=== PATIENT | male | born 1960 | race Caucasian/White ===

== ENCOUNTER 2023-10-28 15:47 | Inpatient (IN) | payer MEDICAID, SELFPAY ==
[2023-10-28 15:57] VITALS: BP 146/106; PULSE 91; RESP 18; TEMP 36.8; O2SAT 97; BMI 27.9
--- NOTE | 2023-10-28 17:06 | ED_ITS ---
Documented by User: Francisco Benton DO 10/28/23 18:26 HPI - General Adult 2 General: Chief complaint: General Medical Stated complaint: hernia trouble Time Seen by Provider: 10/28/23 17:00 Source: patient Mode of arrival: ambulatory History of Present Illness: 63-year-old male presents emergency room complaining of a bulge in the left groin he is concerned about a hernia. He has a very large swollen area in the left inguinal region. Began earlier today it is much larger than usual he is not able to reduce it he has not had any vomiting or diarrhea. No fever sweats or chills. He has had hernia repair in the past. Onset (ago): day(s) Location: genitals Relieving factors: none Exacerbating factors: none Associated symptoms: Reports decreased appetite and nausea; Deny chest pain, confusion, cough, diaphoresis, dyspnea, fevers/chills, headache(s), malaise, rash, palpitations, seizures, short of breath, syncope, vomiting or weakness Review of Systems 2 Const: Denies: fever(s), chills, malaise or diaphoresis Card: Denies: chest pain, palpitations or syncope Resp: Denies: dyspnea GI: Reports: nausea; Denies: abdominal pain or vomiting : Denies: dysuria, urinary frequency or urinary urgency Musc: Denies: neck pain or back pain Skin/Breast: Denies: rash Neuro: Denies: headache(s) or confusion Physical Exam 2 Const: GENERAL APPEARANCE: cooperative and comfortable O RIENTATION/CONSCIOUSNESS: Yes awake, Yes oriented to person, Yes oriented to place and Yes oriented to time HENMT: COMMON NORMALS: normocephalic, atraumatic and hearing grossly normal bilaterally HEAD & SCALP: normocephalic and atraumatic Resp: COMMON NORMALS: normal respiratory effort, No retractions, No use of accessory muscles and clear to auscultation bilaterally AUSCULTATION: clear to auscultation bilaterally Cardio: COMMON NORMALS: regular rate, regular rhythm and No murmurs present (Cardio) RATE: regular rate RHYTHM: regular rhythm GI: COMMON NORMALS: Soft to palpation and No hepatosplenomegaly present A USCULTATION: Yes normoactive bowel sounds PALPATION: Yes Soft to palpation, No Tenderness to palpation present (GI), No Guarding due to palpation present (GI) and Yes No hepatosplenomegaly present : OTHER: Large irreducible left inguinal hernia. It is actually tender large enough it is tympanic to percussion. Exquisitely tender with attempts to reduce. Extremity: COMMON NORMALS: normal to inspection, capillary refill normal, no clubbing, cyanosis or edema, no calf tenderness and no pedal edema Neuro: SENSORIUM/ORIENTATION: Yes oriented to person, Yes oriented to place and Yes oriented to time Skin: COMMON NORMALS: no rashes or lesions noted GENERAL SKIN EXAM: no rashes or lesions noted Course 2 Vital Signs: Vital signs: Vital Signs Temperature 99.4 F 11/03/23 16:30 Pulse Rate 92 11/03/23 16:30 Respiratory Rate 16 11/03/23 16:30 Blood Pressure 150/92 11/03/23 16:30 Pulse Oximetry 95 11/03/23 16:30 Oxygen Delivery Me thod Room Air 11/03/23 16:27 Oxygen Flow Rate 8 11/01/23 15:18 MDM - General Adult Medical Decision Making Incarcerated inguinal hernia on the left with bowel obstruction unable to reduce. It has been out for a while and increasing in swelling is very tympanic to exam even. Will admit to Dr. Pyle. Orders written I discussed Dr. Pyle he is where the patient. Medical Records I reviewed the patient's medical records. Lab Data I reviewed the patient's lab results. 11/03/23 04:29 11/03/23 04:29 Radiology Impressions Abdomen/Pelvis CT 10/28/23 17:47 IMPRESSION: 1. Small bowel obstruction with change in caliber at the neck of a large left-sided inguinal hernia containing small bowel, sigmoid colon and edematous mesenteric fat. Surgical evaluation is recommended. Laboratory Results Urine Color Dark yellow (Yellow) 10/28/23 17:45 Urine Appearance Clear (CLEAR) 10/28/23 17:45 Urine pH 5 (5-7) 10/28/23 17:45 Ur Specific Ransom 1.030 (1.005-1.030) 10/28/23 17:45 Urine Protein Trace (Negative) 10/28/23 17:45 Urine Glucose (UA) Norm (Normal) 10/28/23 17:45 Urine Ketones 2+ (Negative) H 10/28/23 17:45 Urine Blood 2+ (Negative) H 10/28/23 17:45 Urine Nitrate Negative (Negative) 10/28/23 17:45 Urine Bilirubin 1+ (Negative) H 10/28/23 17:45 Urine Urobilinogen Norm mg/dL (Negative) 10/28/23 17:45 Ur Leukocyte Esterase Trace (Negative) H 10/28/23 17:45 Urine RBC 5-10 /hpf (0-2) H 10/28/23 17:45 Urine WBC 0-4 /hpf (0-5) H 10/28/23 17:45 Ur Squamous Epith Cells 0-4 /hpf (0-5) H 10/28/23 17:45 Amorphous Sediment Not Reportable 10/28/23 17:45 Urine Bacteria None /hpf (NONE) 10/28/23 17:45 Urine Mucus 2+ /hpf 10/28/23 17:45 All radiology interpretation(s) finalized by discharge Discharge Plan Discharge Patient Disposition: Admitted As Inpatient Admit Provider: Lang Pyle Clinical Impression: Incarcerated hernia, Bowel obstruction Condition: Stable Discharge Diet: Advance as tolerated Discharge Activity: Limit activity as instructed Coding Level of Care Code ED Retail Business Development Manager for Chg Fwd Documented by User: Jordi Kidd MD 11/04/23 22:07 HPI - General Adult 2 General: Chief complaint: General Medical Stated complaint: hernia trouble Time Seen by Provider: 10/28/23 17:00 Course 2 Vital Signs: Vital signs: Vital Signs Temperature 99.4 F 11/03/23 16:30 Pulse Rate 92 11/03/23 16:30 Respiratory Rate 16 11/03/23 16:30 Blood Pressure 150/92 11/03/23 16:30 Pulse Oximetry 95 11/03/23 16:30 Oxygen Delivery Me thod Room Air 11/03/23 16:27 Oxygen Flow Rate 8 11/01/23 15:18 MDM - General Adult Differential Diagnosis Bowel obstruction, incarcerated hernia, Lab Data 11/03/23 04:29 11/03/23 04:29 Radiology Impressions Abdomen/Pelvis CT 10/28/23 17:47 IMPRESSION: 1. Small bowel obstruction with change in caliber at the neck of a large left-sided inguinal hernia containing small bowel, sigmoid colon and edematous mesenteric fat. Surgical evaluation is recommended. Laboratory Results Urine Color Dark yellow (Yellow) 10/28/23 17:45 Urine Appearance Clear (CLEAR) 10/28/23 17:45 Urine pH 5 (5-7) 10/28/23 17:45 Ur Specific Ransom 1.030 (1.005-1.030) 10/28/23 17:45 Urine Protein Trace (Negative) 10/28/23 17:45 Urine Glucose (UA) Norm (Normal) 10/28/23 17:45 Urine Ketones 2+ (Negative) H 10/28/23 17:45 Urine Blood 2+ (Negative) H 10/28/23 17:45 Urine Nitrate Negative (Negative) 10/28/23 17:45 Urine Bilirubin 1+ (Negative) H 10/28/23 17:45 Urine Urobilinogen Norm mg/dL (Negative) 10/28/23 17:45 Ur Leukocyte Esterase Trace (Negative) H 10/28/23 17:45 Urine RBC 5-10 /hpf (0-2) H 10/28/23 17:45 Urine WBC 0-4 /hpf (0-5) H 10/28/23 17:45 Ur Squamous Epith Cells 0-4 /hpf (0-5) H 10/28/23 17:45 Amorphous Sediment Not Reportable 10/28/23 17:45 Urine Bacteria None /hpf (NONE) 10/28/23 17:45 Urine Mucus 2+ /hpf 10/28/23 17:45 Discharge Plan Discharge Patient Disposition: Admitted As Inpatient Admit Provider: Lang Pyle Clinical Impression: Incarcerated hernia, Bowel obstruction Condition: Stable Discharge Diet: Advance as tolerated Discharge Activity: Limit activity as instructed Coding Level of Care Code ED Retail Business Development Manager for Rody Fisher
[2023-10-28 17:45] VITALS: BP 136/99; PULSE 87; O2SAT 96
--- NOTE | 2023-10-28 17:47 | CTR_ITS ---
PROCEDURE INFORMATION: Exam: CT Abdomen And Pelvis Without Contrast Exam date and time: 10/28/2023 5:54 PM Age: 63 years old Clinical indication: Abdominal pain; Localized; Left lower quadrant (llq) TECHNIQUE: Imaging protocol: Computed tomography of the abdomen and pelvis without contrast. Radiation optimization: All CT scans at this facility use at least one of these dose optimization techniques: automated exposure control; mA and/or kV adjustment per patient size (includes targeted exams where dose is matched to clinical indication); or iterative reconstruction. COMPARISON: No relevant prior studies available. RADIATION DOSE METRICS: Total DLP (mGy-cm): 1013.34 FINDINGS: Lungs: Subsegmental bibasilar atelectasis. The visualized lung bases are otherwise clear. Diaphragm: No evidence of diaphragmatic defect. Liver: No evidence of focal hepatic lesion within limitation of a noncontrast exam. Gallbladder and bile ducts: Gallbladder is unremarkable. No evidence of intra-hepatic or extra-hepatic biliary dilatation. Pancreas: Grossly unremarkable. Spleen: Multiple splenic calcifications compatible with sequela of a remote granulomatous process. Otherwise grossly unremarkable. Adrenal glands: Grossly unremarkable. Kidneys and ureters: There are simple appearing left-sided renal cysts for which dedicated imaging follow-up is not required. Otherwise no evidence of renal parenchymal abnormality. No hydronephrosis or ureteral stone. Stomach and bowel: There is a large left-sided inguinal hernia measuring approximately 15 cm in length by 9.5 cm transverse containing a segment of nonobstructed sigmoid colon as well as a segment of dilated small bowel measuring up to 3.2 cm. There is mild edema and a small amount of fluid within the hernia sac suggestive of venous congestion. There are loops of mildly dilated intra-abdominal small bowel proximally measuring up to 2.8 cm with air-fluid levels with change in caliber of the neck of the hernia suggestive of at least partial small bowel obstruction. Additional small fat containing right-sided inguinal hernia. Appendix: Normal appendix. Intraperitoneal space: No evidence of free air or fluid collection. Vasculature: No evidence of aneurysmal dilitation of abdominal aorta. Lymph nodes: No evidence of adenopathy. Urinary bladder: Grossly unremarkable. Reproductive: Grossly unremarkable. Bones/joints: No evidence of acute fracture or aggresive osseous lesion. Moderate multilevel spondylosis of the lumbar spine with facet arthrosis and osteophytosis. Soft tissues: No evidence of fluid collection or hematoma in the superficial soft tissues. CT/CT abdomen pelvis wo con [id number] IMPRESSION: 1. Small bowel obstruction with change in caliber at the neck of a large left-sided inguinal hernia containing small bowel, sigmoid colon and edematous mesenteric fat. Surgical evaluation is recommended.
[2023-10-28 18:05] LABS: Bilirubin Urine 1+ (Negative); Blood Urine 2+ (Negative); Glucose Urine UA Norm (Normal); Ketones Urine 2+ (Negative); Nitrate Urine Negative (Negative); Protein Urine Trace (Negative); Urine Appearance Clear (CLEAR); Urine Color Dark Yellow (Yellow); Urobilinogen Urine Norm (Negative); pH Urine 5 (5-7)
[2023-10-28 18:06] LABS: Add Urine Microscopic? YES; Leukocyte Esterase Urine Trace (Negative)
[2023-10-28 18:07] LABS: Add Urine Culture? No; Mucus Urine 2+ /hpf; Squamous Epithelial Cell Urine 0-4 /hpf (0-5); WBC Urine 0-4 /hpf (0-5)
--- NOTE | 2023-10-28 19:20 | P.HP_ITS ---
Providers/Chief Complaint 2 Admitting Physician: Lang Pyle DO Primary Care Provider: RYAN Arellano Chief Complaint: hernia trouble History of Present Illness Agustín Viera is a 63 year old male who presented to the hospital with 1 day history of swelling and pain in his left groin. He has known bilateral recurrent inguinal hernias. The left side has been larger than the right but got much larger today and is quite painful. Movement and palpation make the pain worse. Nothing makes pain better. The pain radiates down into his scrotum. He is unsure if he is passing any flatus. His last bowel movement was yesterday. He denies any nausea or emesis. CT shows bilateral inguinal hernias with a small bowel obstruction from the left inguinal hernia containing small bowel and sigmoid colon along with omentum and mesentery Review of Systems 2 General: Reports: 10 or more systems reviewed and unremarkable except in HPI and below Medications/Allergies Home Medications Medication Instructions Recorded Confirmed Last Taken Type acetaminophen 500 mg tablet 1,000 mg PO Q6H PRN headache 10/28/23 10/28/23 10/27/23 10:00 History calcium carbonate (Tums) 200 mg PO BID PRN Heartburn 10/28/23 10/28/23 10/25/23 12:00 History Allergies Allergy/AdvReac Type Severity Reaction Status Date / Time No Known Allergies Allergy Verified 10/28/23 16:00 Vitals/I&O/Wt Last Vital Signs Temp 98.1 F 10/29/23 08:00 Pulse 53 L 10/29/23 08:00 Resp 18 10/29/23 08:00 BP 148/65 10/29/23 08:00 Pulse Ox 94 10/29/23 08:00 O2 Del Method Room Air 10/29/23 04:00 10/28/23 10/29/23 10/29/23 22:59 06:59 14:59 Intake Total 480 / 480 997.5 / 1477.5 1050 / 1050 Output Total 650 / 650 Balance 480 / 480 347.5 / 827.5 1050 / 1050 Weight last 48 hrs Weight 212 lb 5 oz Weight 208 lb 11.2 oz Weight 212 lb Physical Exam 2 Narrative: General : Patient is well developed , no acute distress, oriented x3 Head : Normal cephalic, a-traumatic. Ears : Pinnae and external canal are normal. Hearing is normal. Eyes : PERRLA, Sclera and injection are normal. No conjunctival discharge. Nose : Mucous membranes are without erythema. Throat : buccal mucosa is normal, gums are without significant recession or hypertrophy. Lungs : Equal chest rise bilaterally, no use of accessory muscles, trachea is midline. Cor : Rate and rhythm are normal. Abdomen : Soft, ND, there are recurrent bilateral inguinal hernias, the left one is incarcerated but I was able to reduce the acute portion, no overlying erythema no g/r/m Extremities : No edema, no cyanosis or clubbing, dorsalis pedis pulses are present bilaterally, non-tender to palpation of calves. Upper extremities are normal bilaterally. Back : non-tender to palpation, no CVA tenderness. Neuro : CN II - XII intact, Upper and lower extremities have equal and full strength Data 10/28/23 20:55 10/28/23 20:55 A&P Assessment and plan (1) Incarcerated left inguinal hernia: (2) Recurrent right inguinal hernia: (3) Small bowel obstruction: Plan His hernia was quite large but I was able to reduce the acute portion and relieve his symptoms. A covering surgeon is taking over tomorrow and for the weekend. My plan is to give him a clear liquid diet and a bowel prep on Wednesday, along with antibiotics to prevent bacterial translocation to the mesh and do a laparoscopic repair of bilateral inguinal hernias on Wednesday. Covering surgeon may choose to repair the hernias tomorrow or over the weekend, which is fine with me. He scored positively on nursing suicide questionnaire and therefore we will consult psychiatry Attestations 2 Medical Necessity Statement*: Patient requires multiple nights in the hospital for diet management, antibiotics, bowel prep and bilateral inguinal hernia repairs along with treatment of small bowel obstruction Coding Level of Care Code 15999 Diagnoses Incarcerated left inguinal hernia K40.30 Recurrent right inguinal hernia K40.91 Small bowel obstruction K56.609
[2023-10-28 20:19] VITALS: RESP 18; O2SAT 96
[2023-10-28] MEDS: morphine 4 mg/mL SDV 1 mL IVP (20:19)
[2023-10-28] MEDS: sodium chloride 0.9% 1,000 ML 150 ML IV (20:22)
[2023-10-28 21:27] VITALS: BP 131/87; PULSE 90; RESP 19; TEMP 36.9; O2SAT 95
[2023-10-28 21:31] LABS: Basophils % 0.3 %; Eosinophils % 0.1 %; Hematocrit 41.3 % (37-53); Lymphocytes # 1.1 10^3/uL (0.8-4.8); Lymphocytes % 10.5 %; Mean Corpuscular HGB Conc 35.8 g/dL (30-55); Mean Corpuscular Hemoglobin 35.3 pg (27-33); Mean Corpuscular Volume 98.6 fl (82-101); Mean Platelet Volume 11.3 fL (7.4-10.4); Monocytes # 0.6 10^3/uL (0.2-0.9); Monocytes % 5.9 %; Neutrophils # 8.88 10^3/uL (1.8-7.7); Neutrophils % 82.8 %; Nucleated Red Blood Cells % 0 %; Platelet Count 186 10^3/cmm (157-399); Red Blood Count 4.19 10^6/uL (3.85-5.65); Red Cell Distribution Width 11.9 % (12.1-15.1); White Blood Count 10.72 10^3/uL (3.29-11.43)
[2023-10-28 21:44] LABS: INR 1.12 (0.8-1.2); Partial Thromboplastin Time 27.9 SECONDS (23.9-36.7)
[2023-10-28 21:53] LABS: Alanine Aminotransferase 20 U/L (0-41); Albumin Level 4.4 g/dL (3.5-5.2); Alkaline Phosphatase 57 U/L (40-130); Aspartate Amino Transferase 20 U/L (0-40); Blood Urea Nitrogen 23 mg/dL (8-23); Calcium 9.4 mg/dL (8.5-10.5); Carbon Dioxide 23 mmol/L (22-29); Chloride 108 mmol/L (98-107); Creatinine Clr Calc Pharmacy 105.3392; Globulin 2.7 g/dL (1.3-4.6); Glomerular Filtration Rate 85.8 mL/min (90-130); Glucose 104 mg/dL (65-115); Osmolality Calculated 296 mOsm/kg (285-295); Sodium 141 mmol/L (136-145); Total Bilirubin 0.7 mg/dL (0.15-1.2); Total Protein 7.1 g/dL (6.6-8.7)
[2023-10-28 21:54] LABS: Lactic Sepsis W/Reflex 1.2 mmol/L (0.5-2.2)
[2023-10-28] MEDS: piperacillin-tazobactam 3.375 GM in sodium chloride 0.9% (plus) 50 ML IV (22:15)
[2023-10-29] VITALS: BP 152/88; PULSE 88; RESP 19; TEMP 36.7; O2SAT 98
[2023-10-29] MEDS: sodium chloride 0.9% 1,000 ML 150 ML IV ×3 (02:41→19:04)
[2023-10-29 04:00] VITALS: BP 154/92; PULSE 66; RESP 19; TEMP 36.6; O2SAT 96
[2023-10-29] MEDS: piperacillin-tazobactam 3.375 GM in sodium chloride 0.9% (plus) 50 ML IV ×3 (05:21→21:12)
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
[2023-10-29 08:00] VITALS: BP 148/65; PULSE 53; RESP 18; TEMP 36.7; O2SAT 94
--- NOTE | 2023-10-29 09:24 | PC.CHAP ---
Pastoral Care Encounter/Spiritual Assessment Type of Contact [] Declined front desk worker visit [] Patient/Family/Request visit [] Outpatient visit [] Follow-up visit [] Physician referral [] Code/Alert [x] Routine visit [] Staff referral [] Actively dying [] Patient sleeping [] Family support [] [] Out of room [] Palliative care [] [] Receiving care in room [] Pre-surgical visit [] Trauma [] Long length of stay [] ICU visit [] Other: Relational/Emotional Strength [x] Patient feels connected with others/family/visitors/staff [] Distress [] Loneliness/isolation [] Abandonment Spirituality of Patient [x] Person of Ligia [] Attends Anabaptism of their Ligia [x] Believes in Prayer [] Reads Bible or Cheondoism materials [] There are Spiritual issues to be addressed Manager Functional Interventions [x] Prayer [x] Active listening [] Non-anxious presence [x] Spiritual/emotional support [] Crisis/trauma care [] Spiritual counseling [] Bereavement support [] Provided bereavement packet [] Provided Bible/devotional materials [] Provided toy/stuffed animal, coloring book to patient or family member [] Provided Communion [] Anointing/[place] [] Salvation [x] Completed spiritual assessment [] Other: Impact on Illness or Injury [] Angry [] Fearful [] Anxious [] Often cries [] Exhaustion [] Unable to work [] Unable to attend jainism [] Unable to walk/stand [] Unable to read [] Unable to drive [] Unable to eat/drink [] Unable to sleep [] Unable to be with family [] Patient intubated [] Other: Summary Time spent with patient 10 min
--- NOTE | 2023-10-29 09:33 | P.PN_ITS ---
Subjective 2 Subjective: Patient seen and examined. He is now having bowel movements and passing flatus. Denies any nausea or vomiting. Pain has resolved Vitals/I&O/Wt Last Vital Signs Temp 98.1 F 10/29/23 08:00 Pulse 53 L 10/29/23 08:00 Resp 18 10/29/23 08:00 BP 148/65 10/29/23 08:00 Pulse Ox 94 10/29/23 08:00 O2 Del Method Room Air 10/29/23 04:00 10/28/23 10/29/23 10/29/23 22:59 06:59 14:59 Intake Total 480 / 480 997.5 / 1477.5 1050 / 1050 Output Total 650 / 650 Balance 480 / 480 347.5 / 827.5 1050 / 1050 Weight last 48 hrs Weight 212 lb 5 oz Weight 208 lb 11.2 oz Weight 212 lb Physical Exam 2 Narrative: General: No acute distress, awake alert and oriented x 3 Abdomen: Soft, nontender, nondistended, there are bilateral inguinal hernias which are recurrent and the left one is incarcerated but there is no longer an obstruction Data 10/28/23 20:55 10/28/23 20:55 A&P Assessment and plan (1) Incarcerated left inguinal hernia: (2) Recurrent right inguinal hernia: (3) Small bowel obstruction: Plan His hernia was quite large but I was able to reduce the acute portion and relieve his symptoms. A covering surgeon is taking over today and for the weekend. My plan is to give him a clear liquid diet and a bowel prep on Wednesday, along with antibiotics to prevent bacterial translocation to the mesh and do a laparoscopic repair of bilateral inguinal hernias on Wednesday. Covering surgeon may choose to repair the hernias tomorrow or over the weekend, which is fine with me. He scored positively on nursing suicide questionnaire and therefore we will consult psychiatry Attestations 2 Medical Necessity Statement*: Patient requires multiple nights in the hospital for diet management, antibiotics, bowel prep and bilateral inguinal hernia repairs along with treatment of small bowel obstruction Coding Level of Care Code 89920 Diagnoses Incarcerated left inguinal hernia K40.30 Recurrent right inguinal hernia K40.91 Small bowel obstruction K56.609
[2023-10-29 12:00] VITALS: BP 138/79; PULSE 72; RESP 16; TEMP 36.5; O2SAT 96
[2023-10-29 16:00] VITALS: BP 136/83; PULSE 66; RESP 16; TEMP 36.6; O2SAT 95
[2023-10-29] MEDS: acetaminophen 325 mg Tablet 650 MG PO (16:42)
[2023-10-29 20:00] VITALS: BP 134/87; PULSE 69; RESP 16; TEMP 36.8; O2SAT 95
[2023-10-30] VITALS (7 sets, daily range): BP systolic 119–165; BP diastolic 76–97; PULSE 62–86; RESP 16–18; TEMP 36.4–37.1; O2SAT 94–97; BMI 28.5
[2023-10-30] MEDS: sodium chloride 0.9% 1,000 ML 150 ML IV ×4 (01:25→21:20)
[2023-10-30 03:58] LABS: Basophils # 0.1 10^3/uL (0.0-0.1); Basophils % 0.8 %; Eosinophils # 0.1 10^3/uL (0.0-0.8); Eosinophils % 2.2 %; Hematocrit 39.5 % (37-53); Lymphocytes % 30.9 %; Mean Corpuscular HGB Conc 35.2 g/dL (30-55); Mean Corpuscular Hemoglobin 35.6 pg (27-33); Mean Corpuscular Volume 101.3 fl (82-101); Mean Platelet Volume 11.3 fL (7.4-10.4); Monocytes # 0.7 10^3/uL (0.2-0.9); Monocytes % 11.1 %; Neutrophils # 3.56 10^3/uL (1.8-7.7); Neutrophils % 54.7 %; Nucleated Red Blood Cells % 0 %; Platelet Count 169 10^3/cmm (157-399); Red Cell Distribution Width 11.9 % (12.1-15.1)
[2023-10-30 04:19] LABS: Anion Gap 11.6 (5-19); Blood Urea Nitrogen 9 mg/dL (8-23); Calcium 8.7 mg/dL (8.5-10.5); Carbon Dioxide 23 mmol/L (22-29); Chloride 112 mmol/L (98-107); Creatinine Clr Calc Pharmacy 118.5839; Glomerular Filtration Rate 98.3 mL/min (90-130); Glucose 91 mg/dL (65-115); Osmolality Calculated 294 mOsm/kg (285-295); Potassium 3.6 mmol/L (3.5-5.1); Sodium 143 mmol/L (136-145)
[2023-10-30] MEDS: piperacillin-tazobactam 3.375 GM in sodium chloride 0.9% (plus) 50 ML IV ×3 (05:35→20:45)
--- NOTE | 2023-10-30 08:49 | P.PN_ITS ---
Subjective 2 Subjective: No acute events overnight. Pain resolved, returned to baseline L inguinal discomfort. Patient looking forward to hernia repair Wednesday. No longer obstructed. Vitals/I&O/Wt Last Vital Signs Temp 98.7 F 10/30/23 03:39 Pulse 86 10/30/23 03:39 Resp 18 10/30/23 03:39 BP 132/76 10/30/23 03:39 Pulse Ox 94 10/30/23 03:39 O2 Del Method Room Air 10/30/23 03:39 10/29/23 10/30/23 10/30/23 22:59 06:59 14:59 Intake Total 1750 / 4000 1002.5 / 5002.5 1000 / 1000 Output Total 72 / 5 350 / 2375 Balance 1024 / 1974 652.5 / 2627.5 1000 / 1000 Weight last 48 hrs Weight 216 lb 9 oz Weight 212 lb 5 oz Weight 208 lb 11.2 oz Weight 212 lb Physical Exam 2 Narrative: General: No acute distress, awake alert and oriented x 3 Abdomen: Soft, nontender, nondistended, there are bilateral inguinal hernias which are recurrent and the left one is incarcerated but there is no longer an obstruction. No skin changes, no significant tenderness. Data 10/30/23 02:44 10/30/23 02:44 A&P Assessment and plan (1) Incarcerated left inguinal hernia: (2) Recurrent right inguinal hernia: (3) Small bowel obstruction: Plan Hernias remain at baseline size. Plan for CLD, bowel prep, and antibiotics on Wednesday for laparoscopic repair of bilateral inguinal hernias with mesh by Dr. Pyle on Wednesday. He scored positively on nursing suicide questionnaire and psychiatry has been consulted, full evaluation pending. Attestations 2 Medical Necessity Statement*: Patient requires multiple nights in the hospital for diet management, antibiotics, bowel prep and bilateral inguinal hernia repairs along with treatment of small bowel obstruction Coding Level of Care Code Acute Code for Chg Fwd Diagnoses Incarcerated left inguinal hernia K40.30 Recurrent right inguinal hernia K40.91 Small bowel obstruction K56.609
[2023-10-30] MEDS: acetaminophen 325 mg Tablet 650 MG PO (16:02)
[2023-10-31 04:00] VITALS: BP 164/94; PULSE 67; RESP 18; TEMP 36.8; O2SAT 97
[2023-10-31] MEDS: sodium chloride 0.9% 1,000 ML 150 ML IV ×4 (04:04→23:15)
[2023-10-31 04:31] LABS: Basophils # 0.1 10^3/uL (0.0-0.1); Basophils % 0.9 %; Eosinophils # 0.2 10^3/uL (0.0-0.8); Eosinophils % 2.8 %; Hematocrit 38.3 % (37-53); Lymphocytes # 2.3 10^3/uL (0.8-4.8); Lymphocytes % 32.2 %; Mean Corpuscular HGB Conc 34.7 g/dL (30-55); Mean Corpuscular Hemoglobin 34.9 pg (27-33); Mean Corpuscular Volume 100.5 fl (82-101); Mean Platelet Volume 11.6 fL (7.4-10.4); Monocytes # 0.8 10^3/uL (0.2-0.9); Monocytes % 11.4 %; Neutrophils # 3.68 10^3/uL (1.8-7.7); Neutrophils % 52.4 %; Nucleated Red Blood Cells % 0 %; Platelet Count 153 10^3/cmm (157-399); Red Blood Count 3.81 10^6/uL (3.85-5.65); Red Cell Distribution Width 11.9 % (12.1-15.1); White Blood Count 7.02 10^3/uL (3.29-11.43)
[2023-10-31] MEDS: piperacillin-tazobactam 3.375 GM in sodium chloride 0.9% (plus) 50 ML IV ×3 (04:46→21:00)
[2023-10-31 04:56] LABS: Anion Gap 12.4 (5-19); Blood Urea Nitrogen 7 mg/dL (8-23); Calcium 8.4 mg/dL (8.5-10.5); Carbon Dioxide 22 mmol/L (22-29); Chloride 112 mmol/L (98-107); Creatinine Clr Calc Pharmacy 106.3481; Glomerular Filtration Rate 85.8 mL/min (90-130); Glucose 85 mg/dL (65-115); Magnesium 1.9 mg/dL (1.7-2.3); Osmolality Calculated 293 mOsm/kg (285-295); Potassium 3.4 mmol/L (3.5-5.1); Sodium 143 mmol/L (136-145)
--- NOTE | 2023-10-31 07:48 | P.PN_ITS ---
Subjective 2 Subjective: No acute events overnight. Remains pain-free. Patient looking forward to hernia repair Wednesday. No longer obstructed. Vitals/I&O/Wt Last Vital Signs Temp 98.2 F 10/31/23 04:00 Pulse 67 10/31/23 04:00 Resp 18 10/31/23 04:00 BP 164/94 10/31/23 04:00 Pulse Ox 97 10/31/23 04:00 O2 Del Method Room Air 10/30/23 15:20 10/30/23 10/31/23 10/31/23 22:59 06:59 14:59 Intake Total 1286 / 3557 1087.5 / 4644.5 Output Total 425 / 900 Balance 861 / 2657 1087.5 / 3744.5 Weight last 48 hrs Weight 216 lb 9 oz Weight 216 lb 9 oz Physical Exam 2 Narrative: General: No acute distress, awake alert and oriented x 3 Abdomen: Soft, nontender, nondistended, there are bilateral L > R recurrent inguinal hernias, L soft and without skin changes despite chronic incarceration. Data 10/31/23 02:47 10/31/23 02:47 A&P Assessment and plan (1) Incarcerated left inguinal hernia: (2) Recurrent right inguinal hernia: (3) Small bowel obstruction: Plan Hernias remain at baseline size. Plan for CLD, bowel prep, and antibiotics on Wednesday for laparoscopic repair of bilateral inguinal hernias with mesh by Dr. Pyle on Wednesday. NPO midnight. He scored positively on nursing suicide questionnaire and psychiatry has been consulted, full evaluation pending. Attestations 2 Medical Necessity Statement*: Patient requires multiple nights in the hospital for diet management, antibiotics, bowel prep and bilateral inguinal hernia repairs along with treatment of small bowel obstruction and assessment by psychiatry for suicidality on screening questions. Coding Level of Care Code Acute Code for Chg Fwd Diagnoses Incarcerated left inguinal hernia K40.30 Recurrent right inguinal hernia K40.91 Small bowel obstruction K56.609
[2023-10-31 09:35] VITALS: BP 174/92; PULSE 57; RESP 20; TEMP 36.7; O2SAT 98
--- NOTE | 2023-10-31 12:11 | P.NPUHP_ITS ---
Providers/Chief Complaint 2 Admitting Physician: Lang Pyle DO Primary Care Provider: RYAN Arellano Chief Complaint: hernia trouble HPI NPU History of Present Illness Agustín Viera is a 63 year old male who presented to the emergency department with the following report: Chief complaint: General Medical Stated complaint: hernia trouble Time Seen by Provider: 10/28/23 17:00 Source: patient Mode of arrival: ambulatory History of Present Illness: 63-year-old male presents emergency room complaining of a bulge in the left groin he is concerned about a hernia. He has a very large swollen area in the left inguinal region. Began earlier today it is much larger than usual he is not able to reduce it he has not had any vomiting or diarrhea. No fever sweats or chills. He has had hernia repair in the past. Onset (ago): day(s) Location: genitals Relieving factors: none Exacerbating factors: none Associated symptoms: Reports decreased appetite and nausea; Deny chest pain, confusion, cough, diaphoresis, dyspnea, fevers/chills, headache(s), malaise, rash, palpitations, seizures, short of breath, syncope, vomiting or weakness. [facility] for possible treatment of a hernia repair by surgery. A basic nursing assessment was done where in some statement surrounding suicidality or lethality was noted and so a psychiatric consult was requested. Patient presents today reporting that he does recall that statement but reports it was taken out of context. We discussed the fact that it appears that he is a person that is very loose with his words and says exactly the words that come to his mind and sometimes he can be overstated in his responses. He reports that the pain from the hernia is significant and he may have said something about rather him to than deal with that pain but he reported that he has adjusted from the standpoint of his mental health issues and that he has lots of hobbies and many things to live for. He denies any significant issues regarding tobacco alcohol or marijuana or any other illicit drugs. He reports the only addictive issues that he reports are related to occasionally getting scratch off tickets. He reports he never lets that affect his bills being paid. Talked about having an apartment where he lives alone and that the only recent challenges was an increase in rent for the first time by $100 which he blamed on Jos Biden. He talked about the possibility of having some residual paranoia from his schizophrenia diagnosis and that he had taken medications in the past but did not like the way they made him feel and that he stopped going to outpatient treatment because he felt he was always being pushed towards medication which she seems to have some conspiracies about. Other conspiratorial talk he had was very consistent with things that are commonly spoke of by people following conservative movements. He denies significant depression or symptoms consistent with major depressive disorder. He denies anxiety or issues consistent with generalized anxiety disorder. He reports that his life has been tough at times because he was bullied when he was younger but he did stand up for himself. He reports that his family was rather large but he was one of the younger kids and that his parents younger that he is now and that he is not really recovered from that because he lives with them at the time that the past. He reports he was about 27 years old when that occurred and that his dad would be over 100 now. He reports limited contact with his family and being a loner but that is how he likes it. We discussed some of his symptoms that seem consistent with cluster a personality and even discussed whether that is his actual diagnosis versus schizophrenia. Psychiatric history: As above. Substance abuse history: As above. Developmental history: He did report being in special education classes when he was younger and being teased and bullied about that significantly. Psychosocial history: He reports that his parents were together when he was born and that he had several brothers and sisters. One of his sisters is almost 80 and he has other siblings that are in their 70s and then some closer to his age. He denied any significant abuse in his childhood. He endorses being in special education and school being tough because of bullying. He denied ever being , being in the and did not endorse any specific pentecostal belief system. He endorsed living in an apartment alone and that he was on disability but reported only getting $1000 or so and reports that his rent was increased by $100 right after his disability was increased by about $40. Legal history: He denied any significant issues. Medical history: He denied any major issues other than his hernia. Meds NPU Home Medications Medication Instructions Recorded Confirmed Last Taken Type acetaminophen 500 mg tablet 1,000 mg PO Q6H PRN headache 10/28/23 10/28/23 10/27/23 10:00 History calcium carbonate (Tums) 200 mg PO BID PRN Heartburn 10/28/23 10/28/23 10/25/23 12:00 History Allergies Allergy/AdvReac Type Severity Reaction Status Date / Time No Known Allergies Allergy Verified 10/28/23 16:00 Mental Status Exam 2 MSE Comments: This is a overweight white male in hospital gown with limited grooming but appropriate eye contact. No abnormal movements except for mild psychomotor agitation. Cooperative with exam in no acute distress. Speech was slightly increased rate and normal volume. Mood described as good affect congruent. Thought process organized. Thought content: Patient denied suicidal or homicidal ideation, there was mild paranoia reported but no clear paranoid thoughts reported though some conspiracy leaning thinking, there were no auditory or visual hallucinations reported but he does report at times having intensive thoughts. Attention and concentration were intact and memory appeared reliable but none were formally tested. He is alert and oriented x 3. Insight and judgment are limited impulse control appeared fair. Vitals/I&O/Wt Last Vital Signs Temp 98.7 F 10/30/23 03:39 Pulse 86 10/30/23 03:39 Resp 18 10/30/23 03:39 BP 132/76 10/30/23 03:39 Pulse Ox 94 10/30/23 03:39 O2 Del Method Room Air 10/30/23 03:39 10/29/23 10/30/23 10/30/23 22:59 06:59 14:59 Intake Total 1750 / 4000 1002.5 / 5002.5 1000 / 1000 Output Total / 5 350 / 2375 Balance 1024 652.5 / 2627.5 1000 / 1000 Weight last 48 hrs Weight 98.231 kg Weight 96.303 kg Weight 94.665 kg Weight 96.162 kg Data NPU 11/01/23 05:17 11/01/23 05:17 A&P Assessment and plan (1) Incarcerated left inguinal hernia: (2) Recurrent right inguinal hernia: (3) Small bowel obstruction: (4) History of schizophrenia: (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 1. Continue current medication. 2. No credible lethality or concerns for lethality. 3. Patient would benefit from mental health follow-up, however he is not interested in taking medications and reports that whenever he goes to treatment that seems to be their focus. 4. There are no contraindications from him having a surgery to correct his hernia and no safety concerns. 5. Will continue to follow. Attestations NPU 2 Medical Necessity Statement*: N/A. Please see primary team note for medical necessity. 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
[2023-10-31 13:50] VITALS: BP 151/80; PULSE 72; RESP 18; TEMP 36.7; O2SAT 95
[2023-10-31 16:22] VITALS: BP 149/96; PULSE 106; RESP 22; TEMP 36.8; O2SAT 99
[2023-10-31] MEDS: peg /e-lyte soln 4,000 mL Btl 4000 ML PO (17:08)
[2023-10-31 20:00] VITALS: BP 153/73; PULSE 70; RESP 16; TEMP 36.6; O2SAT 97
[2023-11-01] VITALS (20 sets, daily range): BP systolic 88–158; BP diastolic 59–97; PULSE 62–125; RESP 11–24; TEMP 36.4–37.5; O2SAT 91–100
--- NOTE | 2023-11-01 04:50 | P.PN_ITS ---
Subjective 2 Subjective: No acute events overnight. Remains pain-free. Patient looking forward to hernia repair later today. Vitals/I&O/Wt Last Vital Signs Temp 97.7 F 11/01/23 04:00 Pulse 79 11/01/23 04:00 Resp 16 11/01/23 04:00 BP 137/91 11/01/23 04:00 Pulse Ox 97 11/01/23 04:00 O2 Del Method Room Air 11/01/23 04:00 10/31/23 10/31/23 11/01/23 14:59 22:59 06:59 Intake Total 1377.5 / 1377.5 1482.5 / 2860.0 1022.5 / 3882.5 Balance 1377.5 / 1377.5 1482.5 / 2860.0 1022.5 / 3882.5 Weight last 48 hrs Weight 216 lb 9 oz Weight 216 lb 9 oz Physical Exam 2 Narrative: General: No acute distress, awake alert and oriented x 3 Abdomen: Soft, nontender, nondistended, there are bilateral L > R recurrent inguinal hernias, L soft and without skin changes despite chronic incarceration. Data 10/31/23 02:47 10/31/23 02:47 A&P Assessment and plan (1) Incarcerated left inguinal hernia: (2) Recurrent right inguinal hernia: (3) Small bowel obstruction: Plan Hernias remain at baseline size. Plan for laparoscopic repair of bilateral inguinal hernias with mesh by Dr. Pyle today. He scored positively on nursing suicide questionnaire and psychiatry has been consulted, full evaluation pending. Attestations 2 Medical Necessity Statement*: Patient requires multiple nights in the hospital for diet management, antibiotics, bowel prep and bilateral inguinal hernia repairs along with treatment of small bowel obstruction and assessment by psychiatry for suicidality on screening questions. Coding Level of Care Code Acute Code for Chg Fwd Diagnoses Incarcerated left inguinal hernia K40.30 Recurrent right inguinal hernia K40.91 Small bowel obstruction K56.609
[2023-11-01] MEDS: piperacillin-tazobactam 3.375 GM in sodium chloride 0.9% (plus) 50 ML IV ×3 (05:14→21:18)
[2023-11-01 05:37] LABS: Basophils # 0.1 10^3/uL (0.0-0.1); Basophils % 0.8 %; Eosinophils # 0.2 10^3/uL (0.0-0.8); Eosinophils % 2.3 %; Hematocrit 39.1 % (37-53); Lymphocytes # 1.9 10^3/uL (0.8-4.8); Lymphocytes % 25.8 %; Mean Corpuscular HGB Conc 36.3 g/dL (30-55); Mean Corpuscular Hemoglobin 35.2 pg (27-33); Mean Platelet Volume 10.8 fL (7.4-10.4); Monocytes # 0.8 10^3/uL (0.2-0.9); Monocytes % 10.7 %; Neutrophils # 4.49 10^3/uL (1.8-7.7); Neutrophils % 60.1 %; Nucleated Red Blood Cells % 0 %; Platelet Count 161 10^3/cmm (157-399); Red Blood Count 4.03 10^6/uL (3.85-5.65); Red Cell Distribution Width 11.5 % (12.1-15.1); White Blood Count 7.47 10^3/uL (3.29-11.43)
[2023-11-01 05:55] LABS: Anion Gap 12.6 (5-19); Blood Urea Nitrogen 6 mg/dL (8-23); Calcium 8.7 mg/dL (8.5-10.5); Carbon Dioxide 22 mmol/L (22-29); Chloride 108 mmol/L (98-107); Creatinine Clr Calc Pharmacy 119.6417; Glomerular Filtration Rate 98.3 mL/min (90-130); Glucose 84 mg/dL (65-115); Magnesium 1.8 mg/dL (1.7-2.3); Osmolality Calculated 285 mOsm/kg (285-295); Potassium 3.6 mmol/L (3.5-5.1); Sodium 139 mmol/L (136-145)
[2023-11-01] MEDS: sodium chloride 0.9% 1,000 ML 150 ML IV ×2 (05:59→18:00)
--- NOTE | 2023-11-01 11:20 | P.PN_ITS ---
Subjective 2 Subjective: Patient seen and examined. Tolerated bowel prep well. He told me several times that he would rather than experience any more hernia pain. Nursing survey up on admission triggered psychiatric evaluation for suicidal thoughts. He also had a small bowel obstruction from an acute component to his incarcerated left inguinal hernia. I was able to reduce the acute component and resolve his small bowel obstruction, however there is still omentum and sigmoid colon incarcerated into the hernia. He also has a right inguinal hernia Vitals/I&O/Wt Last Vital Signs Temp 97.9 F 11/01/23 07:35 Pulse 69 11/01/23 07:35 Resp 20 H 11/01/23 07:35 BP 147/88 11/01/23 07:35 Pulse Ox 96 11/01/23 07:35 O2 Del Method Room Air 11/01/23 07:35 10/31/23 11/01/23 11/01/23 22:59 06:59 14:59 Intake Total 1482.5 / 2860.0 2022.5 / 4882.5 50 / 50 Balance 1482.5 / 2860.0 2022.5 / 4882.5 50 / 50 Weight last 48 hrs Weight 215 lb Weight 216 lb 9 oz Physical Exam 2 Narrative: General: No acute distress, awake alert and oriented x 3 Abdomen: Soft, tender to palpation over a large incarcerated and recurrent left inguinal hernia and there is a reducible recurrent right inguinal hernia Data 11/01/23 05:17 11/01/23 05:17 A&P Assessment and plan (1) Incarcerated left inguinal hernia: (2) Recurrent right inguinal hernia: (3) Small bowel obstruction: Plan Small bowel obstruction has resolved He completed bowel prep yesterday as there is sigmoid colon incarcerated into his left inguinal hernia Laparoscopic repairs of left incarcerated recurrent inguinal hernia with mesh and recurrent right inguinal hernia with mesh The risks and benefits of the procedure, including but not limited to, bleeding, infection, mesh infection requiring mesh excision antibiotic therapy and repeat surgery, damage surrounding structures, orchiectomy, conversion to an open procedure, scar, numbness, pain, recurrence and or colon injury requiring possible laparotomy and bowel resection.. Patient is understanding of the risks and wishes to proceed. Attestations 2 Medical Necessity Statement*: Patient may be discharged home after the surgery or require 1 night in the hospital for pain control and recovery Coding Level of Care Code 17975 Diagnoses Incarcerated left inguinal hernia K40.30 Recurrent right inguinal hernia K40.91 Small bowel obstruction K56.609
[2023-11-01] MEDS: sodium chloride 0.9% 1,000 ML 30 ML IV (11:34)
--- NOTE | 2023-11-01 12:02 | P.ANESASSM_ITS ---
Pre-Anesthetic Assessment Height/Weight: Height 1.85 m Weight 97.522 kg Temp Pulse Resp BP Pulse Ox O2 Del Method 97.9 F 77 18 158/92 100 Room Air 11/01/23 11:29 11/01/23 11:29 11/01/23 11:29 11/01/23 11:29 11/01/23 11:29 11/01/23 11:29 Operation Date: 11/01/23 12:00 Proposed Procedures p Laparoscopic repair of incarcerated recurrent left inguinal hernia with mesh and recurrent right inguinal hernia with mesh(Bilateral) - Lang Pyle DO Familial anesthetic complications: none Was Beta Mil taken within 24 hours: N/A Was Clonidine taken within 24 hours: N/A Social No alcohol and No tobacco Exam alert and oriented x 3 Airway Submandibular: within normal limits Cervical ROM: within normal limits Mallampati: Class I Dentition: full History/ROS No significant history except as noted Pulmonary None reported CV/HEM None reported None reported Hepatic None reported GI None reported Metabolic None reported Musc/skel None reported Neuropsych Headache Anesthetic Plan ASA status: 1 Anesthesia: Anesthesia Evaluation and General Risk of > 500 ml blood loss (7ml/kg in children): No Medications/Allergies Home Medications Medication Instructions Recorded Confirmed Last Taken Type acetaminophen 500 mg tablet 1,000 mg PO Q6H PRN headache 10/28/23 10/28/23 10/27/23 10:00 History calcium carbonate (Tums) 200 mg PO BID PRN Heartburn 10/28/23 10/28/23 10/25/23 12:00 History Allergies Allergy/AdvReac Type Severity Reaction Status Date / Time No Known Allergies Allergy Verified 10/28/23 16:00 Current Medications Generic Name Dose Route Start Last Admin Trade Name Freq PRN Reason Stop Dose Admin Acetaminophen 650 mg 10/29/23 16:39 10/30/23 16:02 Acetaminophen 325 Mg Tablet PO 650 mg Q6H PRN Administration MILD PAIN Sodium Chloride 1,000 mls @ 150 mls/hr 10/28/23 19:51 11/01/23 05:59 Sodium Chloride 0.9% IV 150 mls/hr .Q6H40M [facility] Administration Piperacillin Sod/Tazobactam 50 mls @ 12.5 mls/hr 10/28/23 21:45 11/01/23 09:43 Sod 3.375 gm/ Sodium Chloride IV Infused Q8H [facility] Infusion Protocol Sodium Chloride 1,000 mls @ 30 mls/hr 11/01/23 11:30 11/01/23 11:34 Sodium Chloride 0.9% IV 11/02/23 11:29 30 mls/hr .Q24H [facility]NA Administration Data Anesthesia 11/01/23 05:17 11/01/23 05:17 Short CBC 10/31/23 11/01/23 Range/Units 02:47 05:17 WBC 7.02 7.47 (3.29-11.43) 10^3/uL Hgb 13.30 14.20 (11.27-16.99) g/dL Hct 38.3 39.1 (37-53) % MCV 100.5 97.0 (82-101) fl Plt Count 153 L 161 (157-399) 10^3/cmm Neut % (Auto) 52.4 60.1 % Neut # (Auto) 3.68 4.49 (1.8-7.7) 10^3/uL BMP 10/31/23 11/01/23 02:47 05:17 Sodium 143 139 Potassium 3.4 L 3.6 Chloride 112 H 108 H Carbon Dioxide 22 22 BUN 7 L 6 L Creatinine 0.9 0.8 Glucose 85 84 Calcium 8.4 L 8.7 Cardiac Studies: 2 No Data to Display
[2023-11-01] MEDS: lidocaine-epi 2% PF 1:200,000 20 mL SDV XX (12:40)
--- NOTE | 2023-11-01 14:50 | P.OP_ITS ---
Operative Report Date of procedure: November 02, 2023 Pre-op diagnosis: Recurrence incarcerated left inguinal hernia Recurrent right inguinal hernia Post-op diagnosis: same Procedure done: Laparoscopic (TEPP) repair of recurrent incarcerated left inguinal hernia with mesh Laparoscopic (TEPP)repair of right inguinal hernia with mesh Implants: Left and right extra-large 3D max Bard meshes Specimens removed/disposition: None Surgeon: Lang Pyle DO Anesthesia: General and Local Estimated blood loss (mL): 5 Complications: None apparent Brief History: This is a very pleasant 63-year-old gentleman who presented to the hospital with a chronic incarcerated left inguinal hernia containing sigmoid colon and omentum. Upon presentation it also contained small bowel with an obstruction. He also has a recurrent right inguinal hernia. Laparoscopic repairs with mesh were indicated. The risks and benefits were explained and documented. Procedure: Patient was wheeled into the operative room and placed on the OR table in a supine position. Abdomen was inspected prepped and draped in usual sterile fashion. Time-out was performed and all present were in agreement. A 15 blade scalpel was used to make 1.2 centimeter incision infraumbilically. Combination of sharp and blunt dissection was performed down to the anterior rectus sheath which was opened sharply. The dissecting balloon was then inserted into the space of Retzius and blown up. We put the camera into the port and identified that we were in the correct space. I then placed 2 5 millimeter trocars suprapubically in the midline. I then used endokitners to bluntly dissect in the space of Retzius out laterally. An extremely large indirect left inguinal hernia was identified. Blunt dissection was performed to dissect down the hernia sac until the vas deferens dove medially. This was an extremely difficult dissection and was done meticulously. The hernia contained sigmoid colon and a large amount of omentum. Greater than 80 minutes was spent lysing adhesions and dissecting out the hernia while taking extreme care while manipulating:. An extra-large 3D max Bard left inguinal mesh was then placed into the space of Retzius. There was significant manipulation of the colon during this part of the procedure. The colon was fully examined and no obvious injuries were identified. There was a large tear in the peritoneum that occurred during dissection that was repaired with a secure strap and 5 mm clip oil gas and pipe tester's. The mesh was unrolled and tacked once medially at the pubic bone. The mesh laid out nicely over the spermatic cord. An indirect inguinal hernia was identified on the right. Blunt dissection was performed to dissect down the hernia sac until the vas deferens dove medially. An extra-large 3D max Bard right inguinal mesh was then placed into the space of Retzius. The mesh was unrolled and tacked once medially at the pubic bone. The mesh laid out nicely over the spermatic cord. Hernia sacs were held underneath the meshes as the insufflation was released. Incisions were closed with 4 O Vicryl in a subcuticular interrupted fashion. Skin glue was applied. Patient tolerated the procedure well. Due to the extensive manipulation of his sigmoid colon and the vast amount of dissection required for the left inguinal hernia repair, he will be kept overnight for observation and continued antibiotics along with pain control. If he is doing well in the morning and has no sign of perforation or infection, he will be discharged.
[2023-11-01] MEDS: fentaNYL 50 mcg/mL INJ 2mL IVP (15:04)
--- NOTE | 2023-11-01 15:48 | ANE.PACU2 ---
Inpatient post-anesthesia follow up: Airway intact: Yes Vital signs: Temperature 99.5 F Pulse Rate 92 Respiratory Rate 11 Blood Pressure 117/75 Pulse Oximetry 93 Oxygen Delivery Me thod Room Air Oxygen Flow Rate 8 Fraction of Inspir ed Oxygen Hydration adequate: Yes Nausea and vomiting: No Pain level: 1 Mental status: Baseline
--- NOTE | 2023-11-01 16:14 | P.NPUPN_ITS ---
Subjective NPU 2 Subjective: Patient presented today reporting that he is doing okay and general but is really struggling secondary to being postsurgery and having some pain and urinary urgency. Otherwise he denied any psychological challenges and reports that he and a good mindset and ready to face this period of convalescence. Mental Status Exam 2 MSE Comments: This is a overweight white male in hospital gown with limited grooming but appropriate eye contact. No abnormal movements except for mild psychomotor agitation. Cooperative with exam in no acute distress. Speech was slightly increased rate and normal volume. Mood described as good affect congruent. Thought process organized. Thought content: Patient denied suicidal or homicidal ideation, there was mild paranoia reported but no clear paranoid thoughts reported though some conspiracy leaning thinking, there were no auditory or visual hallucinations reported but he does report at times having intensive thoughts. Attention and concentration were intact and memory appeared reliable but none were formally tested. He is alert and oriented x 3. Insight and judgment are limited impulse control appeared fair. Vitals/I&O/Wt Last Vital Signs Temp 99.5 F 11/01/23 15:38 Pulse 92 11/01/23 15:43 Resp 11 L 11/01/23 15:43 BP 117/75 11/01/23 15:43 Pulse Ox 93 11/01/23 15:43 O2 Del Method Room Air 11/01/23 15:43 O2 Flow Rate 8 11/01/23 15:18 11/01/23 11/01/23 11/01/23 06:59 14:59 22:59 Intake Total 2022.5 / 4882.5 1100 / 1100 250 / 1350 Output Total 275 / 275 Balance 2022.5 / 4882.5 1100 / 1100 -25 / 1075 Weight last 48 hrs Weight 97.522 kg Weight 98.231 kg Physical Exam 2 Urinary Catheter Management: Sales Latex: Cath Placed During This Visit: yes, but has since been removed by the nurse Urinary Catheter Date of Insertion: 11/01/23 Urinary Catheter Time of Insertion: 12:26 Date Urinary Catheter Removed: 11/01/23 Time Urinary Catheter Discontinued: 14:49 Data NPU 11/01/23 05:17 11/01/23 05:17 A&P Assessment and plan (1) Incarcerated left inguinal hernia: (2) Recurrent right inguinal hernia: (3) Small bowel obstruction: (4) History of schizophrenia: (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 1. Continue current medication. 2. No credible lethality or concerns for lethality. 3. Patient would benefit from mental health follow-up, however he is not interested in taking medications and reports that whenever he goes to treatment that seems to be their focus. 4. There are no contraindications from him having a surgery to correct his hernia and no safety concerns. 5. Will continue to follow. Attestations NPU 2 Medical Necessity Statement*: N/A. Please see primary team note for medical necessity. 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
[2023-11-01] MEDS: HYDROcodone-acetaminophen 7.5-325 mg Tablet 1 TAB PO (21:25)
[2023-11-02] VITALS (8 sets, daily range): BP systolic 133–150; BP diastolic 81–95; PULSE 100–116; RESP 18–22; TEMP 36.1–36.8; O2SAT 93–95
[2023-11-02] MEDS: HYDROmorphone 1 mg/mL INJ 1 mL IVP (00:13)
[2023-11-02] MEDS: sodium chloride 0.9% 1,000 ML 150 ML IV ×4 (00:13→21:58)
[2023-11-02] MEDS: HYDROcodone-acetaminophen 7.5-325 mg Tablet 1 TAB PO (02:33)
[2023-11-02] MEDS: piperacillin-tazobactam 3.375 GM in sodium chloride 0.9% (plus) 50 ML IV ×3 (05:19→21:56)
[2023-11-02 08:02] LABS: Basophils % 0.2 %; Lymphocytes # 1.6 10^3/uL (0.8-4.8); Lymphocytes % 8.2 %; Mean Corpuscular HGB Conc 37.1 g/dL (30-55); Mean Corpuscular Hemoglobin 35.4 pg (27-33); Mean Corpuscular Volume 95.5 fl (82-101); Mean Platelet Volume 10.6 fL (7.4-10.4); Monocytes # 2.1 10^3/uL (0.2-0.9); Monocytes % 10.7 %; Neutrophils # 15.79 10^3/uL (1.8-7.7); Neutrophils % 80.5 %; Nucleated Red Blood Cells % 0 %; Platelet Count 175 10^3/cmm (157-399); Red Blood Count 3.56 10^6/uL (3.85-5.65); Red Cell Distribution Width 11.3 % (12.1-15.1); White Blood Count 19.62 10^3/uL (3.29-11.43)
[2023-11-02 08:21] LABS: Anion Gap 16.5 (5-19); Blood Urea Nitrogen 16 mg/dL (8-23); Calcium 8.2 mg/dL (8.5-10.5); Carbon Dioxide 18 mmol/L (22-29); Chloride 96 mmol/L (98-107); Creatinine Clr Calc Pharmacy 86.1866; Glomerular Filtration Rate 68.1 mL/min (90-130); Glucose 89 mg/dL (65-115); Osmolality Calculated 265 mOsm/kg (285-295); Potassium 3.5 mmol/L (3.5-5.1); Sodium 127 mmol/L (136-145)
--- NOTE | 2023-11-02 10:47 | PC.NURSE ---
Pt Behavior: Pt approached this nurse at the nurse's station. Pt stated, It hurts so bad, the bump. It hurts so bad that I might just whip someone's ass bad enough that they will want to just shoot me and kill me so it takes the pain away. This nurse asked pt if he felt like harming himself or anyone else and pt replied, No, that's what I'm trying to tell you. I won't do it myself but I would kick someone's ass or scare them bad enough that they shoot me. Dr. Pyle notified.
--- NOTE | 2023-11-02 13:01 | P.NPUPN_ITS ---
Subjective NPU 2 Subjective: Patient presented today reporting that he is doing fine outside of his surgery convalescence. He had reasonable complaints about pain in discomfort related to his procedure. Also expressed some pain and discomfort related to having had a catheter inserted. He had some reticence about discharge today but was clear and his understanding of what his aftercare would look like and restrictions that his condition demands. He was able to discuss his situation in a way that was clear that he is capable of informed consent in relation to his treatment. We discussed the likelihood that discharge should happen by tomorrow given no setbacks. He denies any side effects to his medications. Mental Status Exam 2 MSE Comments: This is a overweight white male in hospital gown with limited grooming but appropriate eye contact. No abnormal movements except for mild psychomotor agitation. Cooperative with exam in mild distress related to surgery. Speech was slightly increased rate and normal volume. Mood described as fine but in a little pain, affect congruent. Thought process organized. Thought content: Patient denied suicidal or homicidal ideation, there was mild paranoia reported but no clear paranoid thoughts reported though some conspiracy leaning thinking, there were no auditory or visual hallucinations reported but he does report at times having intensive thoughts. Attention and concentration were intact and memory appeared reliable but none were formally tested. He is alert and oriented x 3. Insight and judgment are limited impulse control appeared fair. Vitals/I&O/Wt Last Vital Signs Temp 97.0 F L 11/02/23 11:38 Pulse 108 H 11/02/23 11:38 Resp 22 H 11/02/23 11:38 BP 149/89 11/02/23 11:38 Pulse Ox 94 11/02/23 11:38 O2 Del Method Room Air 11/02/23 11:38 O2 Flow Rate 8 11/01/23 15:18 11/01/23 11/02/23 11/02/23 22:59 06:59 14:59 Intake Total 1490 / 2590 2155.0 / 4745.0 350 / 350 Output Total 375 / 375 300 / 675 Balance 1115 / 2215 1855.0 / 4070.0 350 / 350 Weight last 48 hrs Weight 96.162 kg Weight 97.522 kg Physical Exam 2 Urinary Catheter Management: Sales Latex: Cath Placed During This Visit: yes, but has since been removed by the nurse Urinary Catheter Date of Insertion: 11/01/23 Urinary Catheter Time of Insertion: 12:26 Date Urinary Catheter Removed: 11/01/23 Time Urinary Catheter Discontinued: 14:49 Data NPU 11/02/23 07:50 11/02/23 07:50 A&P Assessment and plan (1) Incarcerated left inguinal hernia: (2) Recurrent right inguinal hernia: (3) Small bowel obstruction: (4) History of schizophrenia: (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 1. Continue current medication. 2. No credible lethality or concerns for lethality. 3. Patient would benefit from mental health follow-up, however he is not interested in taking medications and reports that whenever he goes to treatment that seems to be their focus. 4. There are no contraindications from him having a surgery to correct his hernia and no safety concerns. Patient status post reportedly successful surgery and having some pain and anxiety about continued improvement. 5. Discussed post surgery care and planning and patient demonstrated capacity for informed consent about follow-up and management of his condition. 6. Agree with discharge once patient is medically cleared by surgery for discharge without need for any additional psychiatric care that patient is not in favor of. 7. Will continue to follow. Attestations NPU 2 Medical Necessity Statement*: N/A. Please see primary team note for medical necessity. 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
--- NOTE | 2023-11-02 15:53 | P.PN_ITS ---
Subjective 2 Subjective: Patient seen and examined. He is reporting significant pain in his groins. He is again saying that if he goes home with this pain he would just kill himself. Then he changed it to, well I would not do it myself, but I would beat the shit out of somebody to try to make them kill me. He reports that he was passing blood with his first few reports of his bladder but no longer is. He reports significant suprapubic pain when he has to urinate. Vitals/I&O/Wt Last Vital Signs Temp 97.0 F L 11/02/23 11:38 Pulse 108 H 11/02/23 11:38 Resp 22 H 11/02/23 11:38 BP 149/89 11/02/23 11:38 Pulse Ox 94 11/02/23 11:38 O2 Del Method Room Air 11/02/23 11:38 O2 Flow Rate 8 11/01/23 15:18 11/02/23 11/02/23 11/02/23 06:59 14:59 22:59 Intake Total 2155.0 / 4745.0 1350 / 1350 Output Total 300 / 675 Balance 1855.0 / 4070.0 1350 / 1350 Weight last 48 hrs Weight 212 lb Weight 215 lb Physical Exam 2 Narrative: General: Some distress, claiming he wants to beat somebody to encourage them to kill him, awake alert and oriented x 3 Abdomen: Soft, nondistended, appropriately tender over bilateral inguinal hernia repairs, abdomen itself is nontender, no guarding rebound Urinary Catheter Management: Sales Latex: Cath Placed During This Visit: yes, but has since been removed by the nurse Urinary Catheter Date of Insertion: 11/01/23 Urinary Catheter Time of Insertion: 12:26 Date Urinary Catheter Removed: 11/01/23 Time Urinary Catheter Discontinued: 14:49 Data 11/02/23 07:50 11/02/23 07:50 A&P Assessment and plan (1) Incarcerated left inguinal hernia: (2) Recurrent right inguinal hernia: (3) Small bowel obstruction: RESOLVED (4) Leukocytosis: (5) Tachycardia: (6) History of schizophrenia: Plan Small bowel obstruction has resolved S/P Laparoscopic (TEPP) repairs of left incarcerated recurrent inguinal hernia with mesh and recurrent right inguinal hernia with mesh . He now has significant leukocytosis and tachycardia along with intractable pain. I do not see any evidence on physical exam that he has colon injury, however in light of his SIRS criteria and yet again talking about his life ending, I will keep him overnight. Repeat labs in the morning. Psychiatry has been asked to see the patient again He was having hematuria after the Sales catheter was removed. I had him bladder scan postvoid and it was 450 cc. This was repeated and was found only be 100 cc. Switch to clear liquid diet for now in case there is a possible colon injury. Will reassess in the morning Attestations 2 Medical Necessity Statement*: Patient reports at least 1 more night in the hospital for pain control, repeat labs in the morning due to his leukocytosis, SIRS criteria and repeated talks with myself and nursing about due to the pain he wants to beat somebody in order to encourage them to kill him. Coding Level of Care Code Acute Code for Chg Fwd Diagnoses Incarcerated left inguinal hernia K40.30 Recurrent right inguinal hernia K40.91 Small bowel obstruction K56.609 Leukocytosis D72.829 Tachycardia R00.0 History of schizophrenia Z86.59
--- NOTE | 2023-11-02 18:27 | PC.PHAR ---
Ativan 0.5 mg ONCE ordered for pt per Dr. Pyle. Ativan 1 mL pre-filled syringe removed from xis. Due to order change, Ativan 1 mL pre-filled syringe wasted with charge auditor (Christy Thompson RN) and second witness, Elizabeth Arana RN.
[2023-11-03 01:02] VITALS: BP 140/90; PULSE 111; RESP 20; TEMP 37.5; O2SAT 95
[2023-11-03] MEDS: sodium chloride 0.9% 1,000 ML 150 ML IV ×2 (04:36→11:25)
[2023-11-03] MEDS: piperacillin-tazobactam 3.375 GM in sodium chloride 0.9% (plus) 50 ML IV (04:38)
[2023-11-03 04:54] LABS: Basophils % 0.1 %; Hematocrit 32.9 % (37-53); Lymphocytes # 0.7 10^3/uL (0.8-4.8); Lymphocytes % 5.3 %; Mean Corpuscular HGB Conc 37.1 g/dL (30-55); Mean Corpuscular Hemoglobin 35.4 pg (27-33); Mean Corpuscular Volume 95.4 fl (82-101); Monocytes # 1.6 10^3/uL (0.2-0.9); Monocytes % 11.4 %; Neutrophils # 11.25 10^3/uL (1.8-7.7); Neutrophils % 82.5 %; Nucleated Red Blood Cells % 0 %; Platelet Count 152 10^3/cmm (157-399); Red Blood Count 3.45 10^6/uL (3.85-5.65); Red Cell Distribution Width 11.4 % (12.1-15.1); White Blood Count 13.63 10^3/uL (3.29-11.43)
[2023-11-03 05:15] LABS: Anion Gap 16.4 (5-19); Blood Urea Nitrogen 11 mg/dL (8-23); Calcium 8.6 mg/dL (8.5-10.5); Carbon Dioxide 19 mmol/L (22-29); Chloride 106 mmol/L (98-107); Creatinine Clr Calc Pharmacy 105.3392; Glomerular Filtration Rate 85.8 mL/min (90-130); Glucose 108 mg/dL (65-115); Magnesium 1.8 mg/dL (1.7-2.3); Osmolality Calculated 286 mOsm/kg (285-295); Potassium 3.4 mmol/L (3.5-5.1); Sodium 138 mmol/L (136-145)
[2023-11-03 05:16] VITALS: BP 142/80; PULSE 96; RESP 20; TEMP 36.9; O2SAT 92
[2023-11-03 07:58] VITALS: BP 131/88; PULSE 99; RESP 18; TEMP 37.4; O2SAT 94
[2023-11-03] MEDS: HYDROcodone-acetaminophen 10-325 mg Tablet 1 TAB PO (08:26)
[2023-11-03 11:41] VITALS: BP 136/81; PULSE 86; RESP 18; TEMP 36.9; O2SAT 94
--- NOTE | 2023-11-03 13:10 | P.DS_ITS ---
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 The left hernia was incarcerated with sigmoid colon and omentum and acutely incarcerated with small bowel causing a small bowel obstruction. He underwent laparoscopic bilateral inguinal hernia repairs with mesh. Multiple times during the visit he talked about ending his life or wanting to beat someone so that they would shoot him due to the pain. Psychology saw the patient and cleared him for discharge. He was discharged home in good condition with instructions, follow-up and pain medication. Physical Exam Narrative: General : Patient is well developed , no acute distress, oriented x3 Head : Normal cephalic, a-traumatic. Ears : Pinnae and external canal are normal. Hearing is normal. Eyes : PERRLA, Sclera and injection are normal. No conjunctival discharge. Nose : Mucous membranes are without erythema. Throat : buccal mucosa is normal, gums are without significant recession or hypertrophy. Lungs : Equal chest rise bilaterally, no use of accessory muscles, trachea is midline. Cor : Rate and rhythm are normal. Abdomen : Soft, ND, appropriately tender, there is an expected left inguinal seroma, no g/r/m Extremities : No edema, no cyanosis or clubbing, dorsalis pedis pulses are present bilaterally, non-tender to palpation of calves. Upper extremities are normal bilaterally. Back : non-tender to palpation, no CVA tenderness. Neuro : CN II - XII intact, Upper and lower extremities have equal and full strength Urinary Catheter Management: Sales Latex: Cath Placed During This Visit: yes, but has since been removed by the nurse Urinary Catheter Date of Insertion: 11/01/23 Urinary Catheter Time of Insertion: 12:26 Date Urinary Catheter Removed: 11/01/23 Time Urinary Catheter Discontinued: 14:49 Discharge Data Studies Completed and Pending Completed Studies During Hospitalization Category Date Time Status CT abdomen pelvis wo con [id number] Stat Cat Scan 10/28/23 17:47 Completed Pending at discharge Category Date Time Status BMP [Basic Metabolic Panel] AM LABS Lab 11/04/23 04:00 Ordered BMP [Basic Metabolic Panel] AM LABS Lab 11/05/23 04:00 Ordered CBC Auto Diff [Complete Blood Count w/Auto] AM LABS Lab 11/04/23 04:00 Ordered CBC Auto Diff [Complete Blood Count w/Auto] AM LABS Lab 11/05/23 04:00 Ordered Magnesium AM LABS Lab 11/04/23 04:00 Ordered Magnesium AM LABS Lab 11/05/23 04:00 Ordered Radiology Impressions Abdomen/Pelvis CT 10/28/23 17:47 IMPRESSION: 1. Small bowel obstruction with change in caliber at the neck of a large left-sided inguinal hernia containing small bowel, sigmoid colon and edematous mesenteric fat. Surgical evaluation is recommended. Laboratory Results WBC 13.63 10^3/uL (3.29-11.43) H 11/03/23 04:29 RBC 3.45 10^6/uL (3.85-5.65) L 11/03/23 04:29 Hgb 12.20 g/dL (11.27-16.99) 11/03/23 04: Hct 32.9 % (37-53) L 11/03/23 04: MCV 95.4 fl (82-101) 11/03/23 04:29 MCH 35.4 pg (27-33) H 11/03/23 04:29 MCHC 37.1 g/dL (30-55) 11/03/23 04:29 RDW 11.4 % (12.1-15.1) L 11/03/23 04:29 Plt Count 152 10^3/cmm (157-399) L 11/03/23 04:29 MPV 11.0 fL (7.4-10.4) H 11/03/23 04: Neut % (Auto) 82.5 % 11/03/23 04:29 Lymph % (Auto) 5.3 % 11/03/23 04:29 [place] % (Auto) 11.4 % 11/03/23 04: Eos % (Auto) 0.0 % 11/03/23 04: Baso % (Auto) 0.1 % 11/03/23 04: Neut # (Auto) 11.25 10^3/uL (1.8-7.7) H 11/03/23 04: Lymph # (Auto) 0.7 10^3/uL (0.8-4.8) L 11/03/23 04: [place] # (Auto) 1.6 10^3/uL (0.2-0.9) H 11/03/23 04: Eos # (Auto) 0.0 10^3/uL (0.0-0.8) 11/03/23 04: Baso # (Auto) 0.0 10^3/uL (0.0-0.1) 11/03/23 04: Nucleated RBC % (auto) 0 % 11/03/23 04: Nucleated RBCs # 0.0 /100WBC 11/03/23 04: PT 14.70 SECONDS (12.1-14.9) 10/28/23 20:55 INR 1.12 (0.8-1.2) 10/28/23 20:55 APTT 27.9 SECONDS (23.9-36.7) 10/28/23 20:55 Sodium 138 mmol/L (136-145) 11/03/23 04: Potassium 3.4 mmol/L (3.5-5.1) L 11/03/23 04: Chloride 106 mmol/L (98-107) 11/03/23 04: Carbon Dioxide 19 mmol/L (22-29) L 11/03/23 04: Anion Gap 16.4 (5-19) 11/03/23 04: BUN 11 mg/dL (8-23) 11/03/23 04: Creatinine 0.9 mg/dL (0.7-1.2) 11/03/23 04:29 GFR Calculation 85.8 mL/min (90-130) L 11/03/23 04: Glucose 108 mg/dL (65-115) 11/03/23 04: Calculated Osmolality 286 mOsm/kg (285-295) 11/03/23 04:29 Lactic Acid 1.2 mmol/L (0.5-2.2) 10/28/23 20:55 Calcium 8.6 mg/dL (8.5-10.5) 11/03/23 04:29 Magnesium 1.8 mg/dL (1.7-2.3) 11/03/23 04:29 Total Bilirubin 0.7 mg/dL (0.15-1.2) 10/28/23 20:55 AST 20 U/L (0-40) 10/28/23 20:55 ALT 20 U/L (0-41) 10/28/23 20:55 Alkaline Phosphatase 57 U/L (40-130) 10/28/23 20:55 Total Protein 7.1 g/dL (6.6-8.7) 10/28/23 20:55 Albumin 4.4 g/dL (3.5-5.2) 10/28/23 20:55 Globulin 2.7 g/dL (1.3-4.6) 10/28/23 20:55 Urine Color Dark yellow (Yellow) 10/28/23 17:45 Urine Appearance Clear (CLEAR) 10/28/23 17:45 Urine pH 5 (5-7) 10/28/23 17:45 Ur Specific [place] 1.030 (1.005-1.030) 10/28/23 17:45 Urine Protein Trace (Negative) 10/28/23 17:45 Urine Glucose (UA) Norm (Normal) 10/28/23 17:45 Urine Ketones 2+ (Negative) H 10/28/23 17:45 Urine Blood 2+ (Negative) H 10/28/23 17:45 Urine Nitrate Negative (Negative) 10/28/23 17:45 Urine Bilirubin 1+ (Negative) H 10/28/23 17:45 Urine Urobilinogen Norm mg/dL (Negative) 10/28/23 17:45 Ur Leukocyte Esterase Trace (Negative) H 10/28/23 17:45 Urine RBC 5-10 /hpf (0-2) H 10/28/23 17:45 Urine WBC 0-4 /hpf (0-5) H 10/28/23 17:45 Ur Squamous Epith Cells 0-4 /hpf (0-5) H 10/28/23 17:45 Amorphous Sediment Not Reportable 10/28/23 17:45 Urine Bacteria None /hpf (NONE) 10/28/23 17:45 Urine Mucus 2+ /hpf 10/28/23 17:45 Procedures Performed Laparoscopic repair of recurrent incarcerated left inguinal hernia with mesh Laparoscopic repair of recurrent right inguinal hernia with mesh Vitals Last Vital Signs Temp 98.5 F 11/03/23 11:41 Pulse 86 11/03/23 11:41 Resp 18 11/03/23 11:41 BP 136/81 11/03/23 11:41 Pulse Ox 94 11/03/23 11:41 O2 Del Method Room Air 11/03/23 11:41 O2 Flow Rate 8 11/01/23 15:18 Discharge Plan Discharge Patient Disposition: Home Condition: Stable Prescriptions: New Protonix 40 mg tablet,delayed release (DR/EC) 40 mg PO BID 42 Days Qty: 84 1RF hydrocodone-acetaminophen 7.5-325 mg tablet 1 tab PO Q6H PRN (Reason: pain) Qty: 20 0RF Colace 100 mg capsule 100 mg PO BID Qty: 14 0RF Miralax 17 gram/dose powder 17 g PO DAILY 6 Days Qty: 119 0RF Continued Tums 200 mg calcium (500 mg) Tablet,Chewable 200 mg PO BID PRN (Reason: Heartburn) Held acetaminophen 500 mg Tablet 1,000 mg PO Q6H PRN (Reason: headache) Hold Instructions: Resume on 11/08/23. Discharge Orders: Discharge Order (Routine); Ordered 11/03/23 Ordered By: Lang Pyle Referrals: Lang Pyle DO [Physician] - 11/15/23 1:15 pm () Freda Malagon, [employer] [Primary Care Provider] - (We have notified your physician's clinic of the need for a follow-up appointment to be scheduled. If you have not heard from them within the next 2 business days, please call them directly. ) Discharge Diet: Advance as tolerated Discharge Activity: Limit activity as instructed Patient Instructions: Opioid Safety Activity Restrictions/Additional Instructions: No lifting, pushing or pulling over 15 pounds for 6 weeks. Do not soak incisions underwater for 2 weeks. Shower daily. Let the glue fall off on its own. Discharge Attestations Time Spent in Discharge Care*: less than 30 min Quality Metrics Clinical Quality Measures [ No reported AMI, CVA or VTE this stay] Coding Level of Care Code Acute Code for Chg Fwd Diagnoses Incarcerated left inguinal hernia K40.30 Recurrent right inguinal hernia K40.91 Small bowel obstruction K56.609 History of schizophrenia Z86.59 Cluster A personality disorder in adult F60.9 Leukocytosis D72.829 Tachycardia R00.0
[2023-11-03 16:27] VITALS: BP 150/92; PULSE 92; RESP 16; TEMP 37.4; O2SAT 95
--- NOTE | 2023-11-03 16:29 | PC.NURSE ---
Discharge Note Patient discharged to home via car tender accompanied by food mobile driver. Discharge instructions reviewed with patient and/or provider service representative. Mobile pharmacy medications and/or prescriptions provided. Belongings/home medications returned.
[2023-11-03 16:30] VITALS: BP 150/92; PULSE 92; RESP 16; TEMP 37.4; O2SAT 95
== END 2023-11-03 15:45 | disposition home or self-care (01) | DRG 352 ==
LOC: ER 17:07 → MEDSURG 18:49
PROVIDERS: Admitting Provider Surgery; Emergency Provider Family Medicine; PCP Nurse Practitioner; Visit Provider Surgery
PROC: (CPT 49650; principal; 2023-11-01 12:00)
DX: K40.01 Bilateral inguinal hernia, with obstruction, without gangrene, recurrent (principal); F20.9 Schizophrenia, unspecified; R39.15 Urgency of urination; F60.9 Personality disorder, unspecified; R00.0 Tachycardia, unspecified; D72.829 Elevated white blood cell count, unspecified
CPT/HCPCS: 36415; 51702; 74176; 80048; 80053; 81001; 83605; 83735; 85025; 85610; 85730; 99285; C1781; J1100; J1170; J2250; J2270; J2405; J2543; J2704; J2710; J3010; J3490; J7030

== ENCOUNTER → 2023-11-15 12:30 | Outpatient (BNVA) | payer MEDICAID, SELFPAY | PROVIDERS: PCP Nurse Practitioner; Visit Provider Surgery | DX: Z98.890 Other specified postprocedural states (principal); Z87.19 Personal history of other diseases of the digestive system | CPT/HCPCS: 99024 ==

== ENCOUNTER → 2023-12-07 14:11 | Outpatient (BNVA) | payer MEDICAID, SELFPAY | PROVIDERS: PCP Nurse Practitioner; Visit Provider Nurse Practitioner | DX: Z98.890 Other specified postprocedural states (principal); Z87.19 Personal history of other diseases of the digestive system | CPT/HCPCS: 80053; 85025 ==